=== PATIENT | male | born 1955 | race Caucasian/White ===

== ENCOUNTER 2016-10-08 12:35 | Emergency (ER) | payer MEDICARE ==
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
== END 2016-10-08 14:16 | disposition disaster alternative care site (69) ==
LOC: GMED 12:35
DX: G89.29 Other chronic pain (principal); M54.2 Cervicalgia; M25.511 Pain in right shoulder
CPT/HCPCS: J3010